=== PATIENT | female | born 1965 | race Caucasian/White ===

== ENCOUNTER 2016-10-05 08:13 | Inpatient (IN) | payer MEDICARE, OTHER ==
--- NOTE | ~2016-10-05 | DS ---
Discharge Summary [facility] [address] [place]. [address] NAME: SONIA GARBER : 67 STATUS : DIS IN PAT#: [id number] AGE: 51 ADM/REG DATE : 10/05/16 MR#: [id number] REPORT SERV DATE: 10/18/16 DICTATED BY: SHREYAS ESTRADA DATE: 10/17/16 REPORT STATUS : Draft TRANSCRIBED BY: JOSEPH DATE: 10/17/16 Data Collection from hospitalization DISCHARGE DIAGNOSES: 1. Coronary artery disease, status post coronary artery bypass grafting x4. 2. Acute on chronic pain. 3. Hypertension. 4. Generalized anxiety. 5. Hypokalemia. 6. Tobacco abuse. 7. Peptic ulcer disease. 8. Depression. 9. Hyperlipidemia. CONSULTATIONS: Nilay Davidson M.D. PROCEDURES PERFORMED: 1. Cardiac catheterization, 10/05/2016. 2. Coronary artery bypass x4 using left internal mammary artery and right greater saphenous vein harvested endoscopically. 3. Transesophageal echocardiogram, 10/06/2016. 4. CT scan of the chest without contrast, 10/05/2016. 5. Carotid blood flow study, 10/05/2016. 6. Vein mapping of the bilateral lower extremities, 10/05/2016. DISCHARGE MEDICATIONS: Xanax 0.5 mg every 12 hours as needed, aspirin 81 mg daily, Lipitor 40 mg at bedtime, Coreg 6.25 mg twice a day, Bentyl 20 mg four times a day, Yamila 10 mg every 12 hours, Nitrostat 0.4 mg sublingually as needed, Roxicodone one to two tablets every six hours as needed, Protonix 40 mg twice a day, Klor-Con 20 mEq daily, Deltasone 5 mg daily, Phenergan 25 mg per rectum twice a day, Zantac 300 mg at bedtime, Carafate 1 g before meals and at bedtime, Chantix 0.5 mg daily. She was instructed not to continue Imdur. CONDITION AT DISCHARGE: Stable. DISPOSITION: The patient was discharged home on a low-cholesterol, low-sodium, 1800-calorie cardiac/diabetic diet with no concentrated carbohydrates and activities as instructed. She will follow up with Dr. Ayesha White on 11/14/2016. She will follow up with me on 10/31/[address] Didi Schneider on 10/20/2016. She will follow up at [facility] 10/26/2016. HOSPITAL COURSE: This is a 51-year-old female who has a history of coronary artery disease with prior stenting in 2002 at which point she received 3 stents to the RCA. She was found to have distal circumflex disease at that time which was stented a few weeks later. She had another myocardial infarction in 2013. At that time, her circumflex looked good. However, the distal RCA was totally occluded and there was an 80% end-stent restenosis in the proximal RCA. Further intervention was performed on the RCA. At her last appointment, she had been doing well. We gave her prescription for nicotine patches, however, these were not covered by her insurance and she did not obtain them. She developed symptoms similar to Discharge Summary [address] [place]. [address] NAME: SONIA GARBER : 67 STATUS : DIS IN PAT#: [id number] AGE: 51 ADM/REG DATE : 10/05/16 MR#: [id number] REPORT SERV DATE: 10/18/16 DICTATED BY: SHREYAS ESTRADA DATE: 10/17/16 REPORT STATUS : Draft TRANSCRIBED BY: JOSEPH DATE: 10/17/16 prior to her previous heart attack. In general, she had bilateral arm heaviness that caused some hand numbness and poor civil engineering manager strength. Her symptoms were worse in the right arm than in the left arm. She also had burning in her chest that would generally start in the upper abdomen and radiates throughout her chest area. Her symptoms had been causing her anxiety. It was felt that she would need to undergo a cardiac catheterization. She was admitted to the hospital at this time for further evaluation and treatment. Upon admission, she was taken to the cardiac stucco laborer by Dr. Norman where she underwent the above-mentioned procedure. She tolerated this well. There were no complications. She was found to have severe multivessel coronary artery disease including 70% stenosis to the first diagonal, 75% stenosis to the first obtuse marginal, 95% second obtuse marginal, 60% mid circumflex, 60% second diagonal, and 55% mid LAD. There was also a 90% distal RCA in-stent stenosis which would make this her third time sent she had in-stent stenosis since her heart attack in 2002. In 2013, her ejection fraction was 53%. It was felt that she would need to undergo coronary artery bypass grafting. A CT scan of the chest without contrast was performed as well as a carotid blood flow study. Vein mapping of the bilateral lower extremities was also performed. The following day, she was taken to the operating room where she underwent the above-mentioned procedure. She tolerated this well. There were no complications. On postop day #1, she did have some pain control issues. She also had some anxiety. She had mild shortness of breath. We encouraged her to use pulmonary toilet. Chantix was continued. On 10/08/2016, she did complain of some incisional pain. Her chest x-ray showed mild edema. Lopressor was continued. She still had some anxiety. Nicotine replacement therapy continued. The following day, her blood pressure was labile. She was receiving a lot of pain and anxiety medication. We encouraged her to mobilize. Discharge planning was performed. On 10/10/2016, discharge instructions were given. Due to her improved and stable condition, she was discharged home with the above-stated instructions. Information collected by: Leatha Hutchinson I submit the above information as my discharge summary. TG/MODL Shreyas Estrada MD / [id number] CC: MD Didi Aburto
--- NOTE | ~2016-10-05 | CN ---
Consultation Report [facility] [address] [place]. [address] NAME: MEETA GARBER : 67 STATUS : ADM IN PAT#: [id number] AGE: 51 ADM/REG DATE : 10/05/16 MR#: [id number] REPORT SERV DATE: 10/05/16 DICTATED BY: ORLIN MILES DATE: 10/05/16 REPORT STATUS : Draft TRANSCRIBED BY: MODL DATE: 10/05/16 CONSULT NOTE DATE OF CONSULTATION: 10/05/2016 [facility] REASON FOR CONSULTATION: Multivessel-coronary artery disease. HISTORY OF PRESENT ILLNESS: This is a 51-year-old, female who has a longstanding history of coronary artery disease. She had her first LA in 2002 and received three stents to her distal RCA. She continued to smoke and had another LA in 2013, which showed total occlusion of her distal RCA with in-stent stenosis and received another stent at that time. She has continued to smoke and has been asymptomatic until last week, when she presented to the [facility] with complaints of chest pain and bilateral upper extremity weakness and numbness. She has thought her symptoms were similar to what she experienced in 2002 and 2013. She was brought in for a cardiac catheterization today and found to have severe multivessel-coronary artery disease including a 70% stenosis to her 1st diagonal, 75% stenosis to her 1st obtuse marginal, 95% 2nd obtuse marginal, 60% mid circumflex, 60% 2nd diagonal, and a 55% mid LAD. There was also a 90% distal RCA in-stent stenosis which would make this her third time since she has had in-stent stenosis since her heart attack in 2002. There was no mention of ejection fraction with no valvular abnormality. Ejection fraction in 2014 was around 53%. Currently, the patient is recovering after cardiac catheterization. She is tearful and anxious, but has no complaints of chest pain or shortness of breath. PAST MEDICAL HISTORY: Coronary artery disease with previous MIs; ongoing tobacco abuse; hypertension; hyperlipidemia; peptic ulcer disease; depression; chronic back pain, on pain management. SURGICAL HISTORY: PCI x2 for restenosis of her RCA stent. She has had two back surgeries. FAMILY HISTORY: She has a father who is with a history of hypertension, hyperlipidemia, and lung cancer. Mother who has suffered a sudden with a history of LA and high blood pressure. SOCIAL HISTORY: She is single, but has a significant other. She has an 11-year-old son. She smokes 10-19 cigarettes a day. Denies any alcohol abuse or illegal use of illicit drugs. She is on pain management with extended release OxyContin and morphine. ALLERGIES: NO KNOWN DRUG ALLERGIES. MEDICATIONS: Aspirin 81 mg per day, Atorvastatin 80 mg per day, carvedilol 6.25 mg per day, Chantix 0.5 mg per day, dicyclomine 20 mg per day, Imdur 30 mg extended release p.o. daily, morphine extended release 10 mg every 12 hours, nitroglycerin tabs as needed, omeprazole 40 Consultation Report [address] [place]. [address] NAME: MEETA GARBER : 67 STATUS : ADM IN PAT#: [id number] AGE: 51 ADM/REG DATE : 10/05/16 MR#: [id number] REPORT SERV DATE: 10/05/16 DICTATED BY: ORLIN MILES DATE: 10/05/16 REPORT STATUS : Draft TRANSCRIBED BY: MODJudie DATE: 10/05/16 mg per day, Protonix 40 mg per day, Phenergan 25 mg rectal suppository two times per day, ranitidine 300 mg p.o. daily and Carafate 1 g p.o. twice a day. Of note, she has not started the Chantix. She just received insurance approval for this. REVIEW OF SYSTEMS: A 12-point review of systems was obtained and is negative other than the HPI. LAB DATA: White blood cell count 9.1, hemoglobin of 12.3, hematocrit 38.3, and platelets 259. Sodium 142, potassium 3.5, chloride 105, bicarbonate 28, BUN 9, creatinine 0.3, glucose 91. PHYSICAL EXAMINATION: VITAL SIGNS: From today, temperature 98.2, heart rate 79, blood pressure 130/66, respiratory rate 20, and O2 saturation 94%. GENERAL: A pleasant, thin, female, anxious and tearful, but in no acute distress. NEURO: Alert and oriented x3. Pupils exhibit PERRLA. HEENT: Head normocephalic and atraumatic. Sclerae clear. NECK: Supple. LUNGS: Clear to auscultation bilaterally with normal effort. CARDIAC: S1, S2, with no murmurs, rubs, or gallops. ABDOMEN: Soft, flat, nontender with active bowel sounds. EXTREMITIES: Free of cyanosis, clubbing, or edema. ASSESSMENT AND PLAN: This is a 51-year-old, female who has a longstanding history of coronary artery disease with her first heart attack in 2002. She received three stents at that time, but had another heart attack in 2013, with re-in-stent stenosis to her RCA. She received another stent at that time and has recently begun experiencing chest pain. Taken for cardiac catheterization today and found to have her third episode of restenoses to her distal RCA, as well as other multiple coronary artery lesions as mentioned above. She needs multivessel-coronary artery bypass grafting. I discussed the risks and benefits of bypass surgery with the patient and her significant other. Also, I discussed STS risk scores. STS risk stratification for her in this particular surgery includes an overall mortality of 0.6%, morbidity mortality of 8%. I have discussed how these findings are related to her expectations for surgery and postop recovery. We discussed pain management as well. I will review the images with Dr. Phillips this afternoon to see if the patient is a candidate for surgery as it was mentioned that she might not have decent targets. I do believe that we would be able to help her in some degree. The other option is to put a third stent to the stenosis in the RCA, which is most likely the culprit lesion, but the concern is that she would be back at some point in time in the near future with restenosis of this and possibly another heart attack. We will await the conversation for Dr. Phillips who will come back and talk to the patient and her significant other prior to proceeding with surgery. Surgery could take place tomorrow morning, so I will go ahead and get a carotid ultrasound, noncontrast CT scan of the chest, and bilateral lower extremity venous mapping. Consultation Report [facility] [id number] [place]. [address] NAME: MEETA GARBER : 67 STATUS : ADM IN PAT#: [id number] AGE: 51 ADM/REG DATE : 10/05/16 MR#: [id number] REPORT SERV DATE: 10/05/16 DICTATED BY: ORLIN MILES DATE: 10/05/16 REPORT STATUS : Draft TRANSCRIBED BY: JOSEPH DATE: 10/05/16 We would like to thank you for this consultation. We look forward to helping you take care of Ms. Meeta Garber. FAROOQ/JOSEPH Orlin Miles NP / [id number] CC: Barrett Norman Jr., Erin
--- NOTE | ~2016-10-05 | OP ---
Record Of Operation [facility] [place]. [address] NAME: SONIA GARBER : 67 STATUS : DIS IN PAT#: [id number] AGE: 51 ADM/REG DATE : 10/05/16 MR#: [id number] REPORT SERV DATE: 11/06/16 DICTATED BY: SHREYAS ESTRADA DATE: 11/06/16 REPORT STATUS : Draft TRANSCRIBED BY: MODL DATE: 11/06/16 DATE OF PROCEDURE: 10/06/2016 ATTENDING SURGEON: Shreyas Estrada MD. CHART PICKER: STORMY Calderón. ANESTHESIOLOGIST: Fabian Dias MD PREOPERATIVE DIAGNOSES: 1. Hgd-IR-ralaiqe elevation myocardial infarction. 2. Unstable angina. 3. Three-vessel coronary artery disease. 4. Hypertension. 5. Hyperlipidemia. 6. Tobacco abuse. 7. Multiple previous coronary artery stents. POSTOPERATIVE DIAGNOSES: 1. Ajn-RD-pxumyme elevation myocardial infarction. 2. Unstable angina. 3. Three-vessel coronary artery disease. 4. Hypertension. 5. Hyperlipidemia. 6. Tobacco abuse. 7. Multiple previous coronary artery stents. OPERATION PROCEDURE PERFORMED: 1. Median sternotomy. 2. Extracorporeal circulation. 3. Urgent coronary artery bypass grafting x4, left internal mammary artery, left anterior descending, reverse greater saphenous vein graft to obtuse marginal #1, reverse greater saphenous vein graft to obtuse marginal #3. Reverse greater saphenous vein graft to posterior descending artery. 4. Transesophageal echocardiogram. 5. Endoscopic vein harvest to the right leg. COMPLICATIONS: None. TUBES AND DRAINS: 24-Palauan Leon to the left pleural space; 32-Palauan straight mediastinal chest tube; atrioventricular pacing wires were placed. POSTOPERATIVE CONDITION: To CVICU on no inotropic agents. INTRAOPERATIVE FINDINGS: Transesophageal echo showed trace MR, hyperdynamic ventricle with EF of 60% to 70%. There was preserved wall motion post bypass intraoperative findings. Record Of Operation [facility] [place]. [address] NAME: SONIA GARBER : 67 STATUS : DIS IN PAT#: [id number] AGE: 51 ADM/REG DATE : 10/05/16 MR#: [id number] REPORT SERV DATE: 11/06/16 DICTATED BY: SHREYAS ESTRADA DATE: 11/06/16 REPORT STATUS : Draft TRANSCRIBED BY: MODL DATE: 11/06/16 Obtuse marginal #3 and PDA are very small arteries. All targets were diffusely diseased. DETAILS OF BYPASS GRAFTIN. Grafts #1. Left internal mammary artery, left anterior descending, 1.75 mm. 2. Reverse greater saphenous vein graft to the obtuse marginal #1. This was 2 mm target. 3. Reverse greater saphenous vein graft to obtuse marginal #3. This was 1.5 mm target. 4. Reverse greater saphenous vein graft to posterior descending artery. This was 1.5 mm target. INDICATIONS FOR PROCEDURE: Ms. Graber is a 51-year-old female with a long history of tobacco abuse and multiple previous stents, who presented with chest pain with an NSTEMI, unstable angina, and was found to have significant three-vessel disease. Risks, benefits, and alternatives were discussed with the patient including but not limited to, bleeding, infection, stroke, , heart attack, and need for future operations. All questions were answered. Risks of renal failure and pulmonary failure were also discussed. STS mortality was discussed with the patient with an overall mortality risk 0.6% and morbidity mortality percent of 8%. All questions were answered. DETAILS OF PROCEDURE: The patient was brought to the operating room, placed supine on the operating room table. After satisfactory induction of general endotracheal anesthesia, she was prepped and draped in the usual sterile fashion. Working simultaneously, median sternotomy was performed while endoscopic vein harvest was performed from the right leg. Skin and subcutaneous tissues were divided. Clavipectoral fascia was divided. The sternum was divided in the midline. Rultract retractor was placed. Internal mammary artery was harvested in a pedicle fashion from its takeoff from the subclavian vein to the bifurcation of the diaphragm. Systemic heparinization was achieved. The pedicle was infiltrated with papaverine. After three minutes, the pedicle was clipped and divided at the bifurcation of the diaphragm. A 24-Palauan Leon was placed in the left pleural space and. Rultract retractor was removed. Sternal retractor was placed. Thymic tissue was divided in the midline. Pericardium was divided was opened and a pericardial well was created. Descending aortic cannulation was achieved at the base of the innominate artery through dual pursestrings with soft flow cannula. Dual-stage venous cannula was placed through pursestring in the right atrial appendage. Antegrade root vent cardioplegia tack was placed. The conduit was inspected and prepared for bypass. The internal mammary artery was brought down through a wide V in the pericardium. The cardiopulmonary bypass was initiated after documentation of an adequate ACT. The targets were inspected and were found to be as described in the findings. The cross-clamp was brought up, and the heart was arrested with cold antegrade cardioplegia switching to cold antegrade cardioplegia every 15 to 20 minutes throughout the remainder of the cross clamp. The grafts were then performed as mentioned in the findings. All distal anastomoses were performed with 8-0 Surgipro. The proximal vein grafts were performed after enlarging the heart, filling the veins, cutting the vein length spatulating. A proximal aortotomies were performed and enlarged with a 4.5 mm punch. Anastomoses were done with 6-0 Prolene and vein marker was placed. The internal mammary artery had been brought down through a wide V in the pericardium with anastomosed to the LAD. Bulldog was removed. There was excellent flow in the LAD distal and proximally to the anastomosis and to the graft. Pedicle was attached to the heart in two places. Atrial and ventricular pacing wires were placed. The grafts were de-aired and the cross-clamp was Record Of Operation [address] [place]. [address] NAME: SONIA GARBER : 67 STATUS : DIS IN PAT#: [id number] AGE: 51 ADM/REG DATE : 10/05/16 MR#: [id number] REPORT SERV DATE: 11/06/16 DICTATED BY: SHREYAS ESTRADA DATE: 11/06/16 REPORT STATUS : Draft TRANSCRIBED BY: MODL DATE: 11/06/16 removed. The patient was able to be weaned from cardiopulmonary bypass without incident. Protamine was administered. The patient was decannulated. All cannulation sites were oversewn with 4-0 Prolene. Hemostasis was obtained. A 32-Palauan chest tube was placed beneath the sternum. The pericardium and thymic tissue were loosely reapproximated over the ascending aorta and the right ventricle. The sternum was then reapproximated with stainless steel sternal wires. Some of these were double wires. The clavipectoral fascia was reapproximated using running #1 StrataFix. Subcutaneous tissues were closed using continuation of StrataFix, and the skin using 2-0 Quill. Dry sterile dressings were placed. She was transferred to the CVICU in critical stable condition. RONNIE/JOSEPH Shreyas Estrada MD / [id number] CC: MD HERMINIA Aburto ERIN
[~2016-10-05 08:13] MED LIST: ASAB PO; BENTYL20 PO; CHANTIX0.5 PO; COREG6 PO; IMDUR30 PO; KADIAN10 MG PO; LIPITOR80 MG PO; NITROSTAT0.4 MG SL; OXYIR5 MG PO; PR25R PR; PRILOSEC40 MG PO; PROTONIX PO; SUCR PO; ZANTAC300 MG PO
[2016-10-05 08:56] LABS: BASOPHILS 0.2 %; BASOPHILS ABSOLUTE 0.02 10/3/uL (0.0-0.16); EOSINOPHILS 0.9 %; EOSINOPHILS ABSOLUTE 0.08 10/3/uL (0.0-0.53); HEMOGLOBIN 12.3 g/dL (12.0-16.0); IMMATURE GRANULOCYTES 0.2 %; IMMATURE GRANULOCYTES ABSOLUTE 0.02 10/3/uL (0.0-0.11); LYMPHOCYTES ABSOLUTE 1.27 10/3/uL (0.67-4.30); MEAN CORPUS HGB CONC 32.1 g/dL (32.0-36.0); MEAN CORPUSCULAR HEMOGLOB 30.1 pg (26.0-34.0); MEAN CORPUSCULAR VOLUME 93.6 fL (80-100); MEAN PLATELET VOLUME 9.5 fL (9.2-13.0); MONOCYTES 9.3 %; MONOCYTES ABSOLUTE 0.84 10/3/uL (0.21-1.20); NEUTROPHILS 75.4 %; NEUTROPHILS ABSOLUTE 6.85 10/3/uL (2.02-8.40); PLATELET COUNT 259 10/3/uL (150-400); RBC DISTRIBUTION WIDTH 15.2 % (12.0-16.0); RED CELL COUNT 4.09 10/6/uL (4.0-5.6); WHITE BLOOD CELLS 9.1 10/3/uL (4.5-10.5)
[2016-10-05 08:58] LABS: HEMATOCRIT 38.3 % (36.0-48.0); MANUAL DIFF NO %
[2016-10-05 09:09] LABS: CALCIUM, SERUM 8.6 MG/DL (8.5-10.4); CHLORIDE, SERUM 105 MMOL/L (96-112); CHOL/HDL RATIO(NOT ORDER) 2.9 (0-5); CHOLESTEROL 163 MG/DL (< 200); CO2 (CARBON DIOXIDE) 28 MMOL/L (24-34); CREATININE 0.32 MG/DL (0.55-1.02); GFR AFRICAN AMERICAN 151 ML/MIN (>=60); GFR NON AFRICAN AMERICAN 131 ML/MIN (>=60); GLUCOSE, SERUM 91 MG/DL (60-99); HDL CHOLESTEROL 56 MG/DL (> 49); LDL CHOLESTEROL 83 MG/DL (< 130); NON-HDL CHOLESTEROL 107 MG/DL (< 160); SODIUM, SERUM 142 MMOL/L (135-148); TRIGLYCERIDE 122 MG/DL (< 150)
[2016-10-05 09:11] LABS: BUN (BLOOD UREA NITROGEN) 9 MG/DL (6-23); POTASSIUM, SERUM 3.5 MMOL/L (3.5-5.3)
[2016-10-05 17:24] LABS: WBC (NOT ORDERED) (RFLEX) 0 (0-5)
[2016-10-05 17:46] LABS: ASCORBIC ACID (UR NOT ORDER) NEG (NEG); BILIRUBIN, URINE NEGATIVE (NEG); KETONE, URINE NEGATIVE (NEG); LEUKOCYTE ESTERASE(NOT OR NEG (NEG)
[2016-10-06 04:09] LABS: BASOPHILS 0.2 %; BASOPHILS ABSOLUTE 0.01 10/3/uL (0.0-0.16); EOSINOPHILS 1.8 %; EOSINOPHILS ABSOLUTE 0.09 10/3/uL (0.0-0.53); HEMATOCRIT 35.7 % (36.0-48.0); HEMOGLOBIN 11.4 g/dL (12.0-16.0); LYMPHOCYTES 39.6 %; LYMPHOCYTES ABSOLUTE 1.96 10/3/uL (0.67-4.30); MEAN CORPUS HGB CONC 31.9 g/dL (32.0-36.0); MEAN CORPUSCULAR HEMOGLOB 29.2 pg (26.0-34.0); MEAN CORPUSCULAR VOLUME 91.3 fL (80-100); MEAN PLATELET VOLUME 9.1 fL (9.2-13.0); MONOCYTES 13.9 %; MONOCYTES ABSOLUTE 0.69 10/3/uL (0.21-1.20); NEUTROPHILS 44.5 %; PLATELET COUNT 224 10/3/uL (150-400); RBC DISTRIBUTION WIDTH 15.2 % (12.0-16.0); RED CELL COUNT 3.91 10/6/uL (4.0-5.6)
[2016-10-06 04:10] LABS: MANUAL DIFF NO %
[2016-10-06 04:14] LABS: PROTIME (NOT ORD) 13.1 SEC (12.0-14.5)
[2016-10-06 04:24] LABS: % IRON SAT 10 % (20-50); A/G RATIO 1.1 (0.7-1.9); ALKALINE PHOSPHATASE 66 U/L (45-117); BUN (BLOOD UREA NITROGEN) 8 MG/DL (6-23); CHLORIDE, SERUM 110 MMOL/L (96-112); CO2 (CARBON DIOXIDE) 27 MMOL/L (24-34); CREATININE 0.38 MG/DL (0.55-1.02); GFR AFRICAN AMERICAN 143 ML/MIN (>=60); GFR NON AFRICAN AMERICAN 124 ML/MIN (>=60); GLOBULIN 2.8 G/DL (2.5-4.1); GLUCOSE, SERUM 89 MG/DL (60-99); IRON BINDING CAPACITY 323 MCG/DL (225-410); IRON, SERUM 31 MCG/DL (35-150); POTASSIUM, SERUM 3.4 MMOL/L (3.5-5.3); SGOT(AST) 16 U/L (5-40); SGPT(ALT) 17 U/L (5-65); SODIUM, SERUM 148 MMOL/L (135-148); TOTAL BILIRUBIN 0.2 MG/DL (0-1.2); TOTAL PROTEIN 5.8 G/DL (6.0-8.5)
[2016-10-06 04:35] LABS: CALCIUM, SERUM 8.2 MG/DL (8.5-10.4)
[2016-10-06 13:00] LABS: HCO3 (ACTUAL BICARBONATE) 24.8 MEQ/L (23-27); HEMOBLOGIN CONTENT 10.8 G/DL (12-16); INSTRUMENT SERIAL # 11843; METHEMOGLOBIN 0.5 % (0-3); PCO2 (CO2 TENSION) 46 MMHG (35-45); PO2 (O2 TENSION) 89 MMHG (79-93); pH 7.35 (7.37-7.43)
[2016-10-06 13:01] LABS: MODE SIMV; O2 CONTENT 14.5 VOL% (18-24); OPERATOR ID 19104; SAMPLE Arterial; TIDAL VOLUME 550 ML
[2016-10-06 13:15] LABS: HEMATOCRIT 30.4 % (36.0-48.0); PLATELET COUNT 146 10/3/uL (150-400)
[2016-10-06 13:23] LABS: INTERNATIONAL NORMAL RATI 1.3 UNITS (-); PARTIAL THROMBO TIME 30.9 SEC (22.5-37.2)
[2016-10-06 13:25] LABS: PROTIME (NOT ORD) 16.3 SEC (12.0-14.5)
[2016-10-06 13:31] LABS: BUN (BLOOD UREA NITROGEN) 7 MG/DL (6-23); CALCIUM, SERUM 8.4 MG/DL (8.5-10.4); CHLORIDE, SERUM 115 MMOL/L (96-112); CO2 (CARBON DIOXIDE) 25 MMOL/L (24-34); CREATININE 0.59 MG/DL (0.55-1.02); GFR AFRICAN AMERICAN 124 ML/MIN (>=60); GFR NON AFRICAN AMERICAN 107 ML/MIN (>=60); POTASSIUM, SERUM 3.8 MMOL/L (3.5-5.3); SODIUM, SERUM 149 MMOL/L (135-148)
[2016-10-06 13:36] LABS: GLUCOSE, SERUM 109 MG/DL (60-99)
[2016-10-06 14:21] LABS: BE (BASE EXCESS) -3.3 MEQ/L (0 +/- 2.5); CARBOXYHEMOGLOBIN 0.3 % (0-3); HCO3 (ACTUAL BICARBONATE) 22.2 MEQ/L (23-27); HEMOBLOGIN CONTENT 11.6 G/DL (12-16); INSTRUMENT SERIAL # 11843; METHEMOGLOBIN 0.4 % (0-3); MODE SIMV; O2 CONTENT 16.1 VOL% (18-24); OPERATOR ID 18642; PCO2 (CO2 TENSION) 42 MMHG (35-45); PO2 (O2 TENSION) 139 MMHG (79-93); PRESSURE SUPPORT 0 cm.H2O; SAMPLE Arterial; TIDAL VOLUME 550 ML; pH 7.34 (7.37-7.43)
[2016-10-06 15:29] LABS: FIBRINOGEN 297 MG/DL (230-462)
[2016-10-06 18:07] LABS: HEMATOCRIT 31.2 % (36.0-48.0); HEMOGLOBIN 9.9 g/dL (12.0-16.0)
[2016-10-06 18:13] LABS: POTASSIUM, SERUM 3.6 MMOL/L (3.5-5.3)
[2016-10-06 18:27] LABS: BE (BASE EXCESS) 0.7 MEQ/L (0 +/- 2.5); CARBOXYHEMOGLOBIN 0.3 % (0-3); DEVICE NC; HEMOBLOGIN CONTENT 10.6 G/DL (12-16); INSTRUMENT SERIAL # 11843; METHEMOGLOBIN 0.7 % (0-3); O2 CONTENT 14.1 VOL% (18-24); OPERATOR ID 19104; PCO2 (CO2 TENSION) 44 MMHG (35-45); PO2 (O2 TENSION) 85 MMHG (79-93); SAMPLE Arterial; pH 7.39 (7.37-7.43)
[2016-10-06 22:54] LABS: HEMATOCRIT 29.2 % (36.0-48.0); HEMOGLOBIN 9.5 g/dL (12.0-16.0)
[2016-10-06 23:04] LABS: CALCIUM, SERUM 7.9 MG/DL (8.5-10.4); POTASSIUM, SERUM 4.1 MMOL/L (3.5-5.3)
[2016-10-07 03:40] LABS: BASOPHILS 0 %; EOSINOPHILS 0 %; HEMATOCRIT 27.9 % (36.0-48.0); HEMOGLOBIN 8.7 g/dL (12.0-16.0); IMMATURE GRANULOCYTES 0.3 %; IMMATURE GRANULOCYTES ABSOLUTE 0.04 10/3/uL (0.0-0.11); LYMPHOCYTES ABSOLUTE 1.05 10/3/uL (0.67-4.30); MEAN CORPUS HGB CONC 31.2 g/dL (32.0-36.0); MEAN CORPUSCULAR HEMOGLOB 28.8 pg (26.0-34.0); MEAN CORPUSCULAR VOLUME 92.4 fL (80-100); MEAN PLATELET VOLUME 10.3 fL (9.2-13.0); MONOCYTES 10.1 %; MONOCYTES ABSOLUTE 1.18 10/3/uL (0.21-1.20); NEUTROPHILS 80.6 %; NEUTROPHILS ABSOLUTE 9.44 10/3/uL (2.02-8.40); PLATELET COUNT 153 10/3/uL (150-400); RBC DISTRIBUTION WIDTH 15.2 % (12.0-16.0)
[2016-10-07 03:42] LABS: MANUAL DIFF NO %; RED CELL COUNT 3.02 10/6/uL (4.0-5.6); WHITE BLOOD CELLS 11.7 10/3/uL (4.5-10.5)
[2016-10-07 04:02] LABS: CALCIUM, SERUM 8.1 MG/DL (8.5-10.4); CHLORIDE, SERUM 111 MMOL/L (96-112); CO2 (CARBON DIOXIDE) 22 MMOL/L (24-34); CREATININE 0.32 MG/DL (0.55-1.02); GFR AFRICAN AMERICAN 151 ML/MIN (>=60); GFR NON AFRICAN AMERICAN 131 ML/MIN (>=60); POTASSIUM, SERUM 3.9 MMOL/L (3.5-5.3); SODIUM, SERUM 145 MMOL/L (135-148)
[2016-10-07 04:03] LABS: BUN (BLOOD UREA NITROGEN) 14 MG/DL (6-23); GLUCOSE, SERUM 91 MG/DL (60-99)
[2016-10-07 04:13] LABS: INTERNATIONAL NORMAL RATI 1.2 UNITS (-); PROTIME (NOT ORD) 15.2 SEC (12.0-14.5)
[2016-10-07 15:21] LABS: HEMATOCRIT 26.7 % (36.0-48.0); HEMOGLOBIN 8.7 g/dL (12.0-16.0)
[2016-10-07 15:31] LABS: POTASSIUM, SERUM 3.9 MMOL/L (3.5-5.3)
[2016-10-08 03:38] LABS: BASOPHILS 0.1 %; BASOPHILS ABSOLUTE 0.01 10/3/uL (0.0-0.16); EOSINOPHILS 0.1 %; EOSINOPHILS ABSOLUTE 0.01 10/3/uL (0.0-0.53); HEMATOCRIT 26.8 % (36.0-48.0); HEMOGLOBIN 8.6 g/dL (12.0-16.0); IMMATURE GRANULOCYTES 0.3 %; IMMATURE GRANULOCYTES ABSOLUTE 0.03 10/3/uL (0.0-0.11); LYMPHOCYTES 10.8 %; LYMPHOCYTES ABSOLUTE 1.18 10/3/uL (0.67-4.30); MEAN CORPUS HGB CONC 32.1 g/dL (32.0-36.0); MEAN CORPUSCULAR HEMOGLOB 29.9 pg (26.0-34.0); MEAN CORPUSCULAR VOLUME 93.1 fL (80-100); MEAN PLATELET VOLUME 9.7 fL (9.2-13.0); MONOCYTES 13.1 %; MONOCYTES ABSOLUTE 1.44 10/3/uL (0.21-1.20); NEUTROPHILS 75.6 %; PLATELET COUNT 137 10/3/uL (150-400); RBC DISTRIBUTION WIDTH 15.2 % (12.0-16.0); RED CELL COUNT 2.88 10/6/uL (4.0-5.6)
[2016-10-08 03:39] LABS: MANUAL DIFF NO %
[2016-10-08 03:49] LABS: BUN (BLOOD UREA NITROGEN) 11 MG/DL (6-23); CALCIUM, SERUM 8.2 MG/DL (8.5-10.4); CHLORIDE, SERUM 105 MMOL/L (96-112); CO2 (CARBON DIOXIDE) 23 MMOL/L (24-34); CREATININE 0.27 MG/DL (0.55-1.02); GFR AFRICAN AMERICAN 160 ML/MIN (>=60); GFR NON AFRICAN AMERICAN 138 ML/MIN (>=60); GLUCOSE, SERUM 94 MG/DL (60-99)
[2016-10-08 03:50] LABS: SODIUM, SERUM 137 MMOL/L (135-148)
[2016-10-09 05:26] LABS: BASOPHILS 0.1 %; BASOPHILS ABSOLUTE 0.01 10/3/uL (0.0-0.16); EOSINOPHILS 0.1 %; EOSINOPHILS ABSOLUTE 0.01 10/3/uL (0.0-0.53); HEMATOCRIT 25.6 % (36.0-48.0); HEMOGLOBIN 8.5 g/dL (12.0-16.0); IMMATURE GRANULOCYTES 0.1 %; IMMATURE GRANULOCYTES ABSOLUTE 0.01 10/3/uL (0.0-0.11); LYMPHOCYTES ABSOLUTE 1.46 10/3/uL (0.67-4.30); MEAN CORPUS HGB CONC 33.2 g/dL (32.0-36.0); MEAN CORPUSCULAR HEMOGLOB 30.4 pg (26.0-34.0); MEAN CORPUSCULAR VOLUME 91.4 fL (80-100); MEAN PLATELET VOLUME 10.8 fL (9.2-13.0); MONOCYTES 15.9 %; MONOCYTES ABSOLUTE 1.36 10/3/uL (0.21-1.20); NEUTROPHILS 66.8 %; NEUTROPHILS ABSOLUTE 5.72 10/3/uL (2.02-8.40); PLATELET COUNT 137 10/3/uL (150-400); RBC DISTRIBUTION WIDTH 14.9 % (12.0-16.0); WHITE BLOOD CELLS 8.6 10/3/uL (4.5-10.5)
[2016-10-09 05:29] LABS: MANUAL DIFF NO %
[2016-10-09 05:42] LABS: CALCIUM, SERUM 8.1 MG/DL (8.5-10.4); CHLORIDE, SERUM 104 MMOL/L (96-112); CREATININE 0.26 MG/DL (0.55-1.02); GFR AFRICAN AMERICAN 162 ML/MIN (>=60); GFR NON AFRICAN AMERICAN 140 ML/MIN (>=60); GLUCOSE, SERUM 103 MG/DL (60-99); POTASSIUM, SERUM 3.4 MMOL/L (3.5-5.3); SODIUM, SERUM 140 MMOL/L (135-148)
[2016-10-09 05:43] LABS: BUN (BLOOD UREA NITROGEN) 7 MG/DL (6-23); CO2 (CARBON DIOXIDE) 28 MMOL/L (24-34)
[2016-10-10 05:16] LABS: BASOPHILS 0.1 %; BASOPHILS ABSOLUTE 0.01 10/3/uL (0.0-0.16); EOSINOPHILS 0.5 %; EOSINOPHILS ABSOLUTE 0.04 10/3/uL (0.0-0.53); HEMATOCRIT 26.6 % (36.0-48.0); HEMOGLOBIN 8.6 g/dL (12.0-16.0); IMMATURE GRANULOCYTES 0.1 %; IMMATURE GRANULOCYTES ABSOLUTE 0.01 10/3/uL (0.0-0.11); LYMPHOCYTES 18.9 %; MANUAL DIFF NO %; MEAN CORPUS HGB CONC 32.3 g/dL (32.0-36.0); MEAN CORPUSCULAR HEMOGLOB 29.7 pg (26.0-34.0); MEAN CORPUSCULAR VOLUME 91.7 fL (80-100); MONOCYTES 15.4 %; MONOCYTES ABSOLUTE 1.22 10/3/uL (0.21-1.20); NEUTROPHILS ABSOLUTE 5.16 10/3/uL (2.02-8.40); PLATELET COUNT 157 10/3/uL (150-400); RBC DISTRIBUTION WIDTH 14.7 % (12.0-16.0); WHITE BLOOD CELLS 7.9 10/3/uL (4.5-10.5)
[2016-10-10 05:43] LABS: BUN (BLOOD UREA NITROGEN) 4 MG/DL (6-23); CALCIUM, SERUM 7.9 MG/DL (8.5-10.4); CHLORIDE, SERUM 106 MMOL/L (96-112); CO2 (CARBON DIOXIDE) 28 MMOL/L (24-34); CREATININE 0.27 MG/DL (0.55-1.02); GFR AFRICAN AMERICAN 160 ML/MIN (>=60); GFR NON AFRICAN AMERICAN 138 ML/MIN (>=60); GLUCOSE, SERUM 108 MG/DL (60-99); POTASSIUM, SERUM 3.3 MMOL/L (3.5-5.3); SODIUM, SERUM 143 MMOL/L (135-148)
[2016-10-10] MEDS ORDERED: LIPITOR40 PO (09:32)
[2016-10-10] MEDS ORDERED: HABIT21 TOP (09:34)
[2016-10-10] MEDS ORDERED: X5 PO (09:36)
[2016-10-10] MEDS ORDERED: KLOR-CON M2020 MEQ PO (09:37)
[2016-10-10] MEDS ORDERED: OXYCOD PO (09:38)
[2016-10-10] MEDS ORDERED: P5 PO (09:42)
== END 2016-10-10 11:44 | disposition home or self-care (01) | DRG 234 ==
LOC: CORLMH 08:13 → SSU1 08:20 → SDC/OF 10-06 06:04 → CVICU 10-06 11:14 → 5NO 10-08 16:57
PROVIDERS: Internal Medicine Cardiovascular Disease; Nurse Practitioner Family; Thoracic Surgery (Cardiothoracic Vascular Surgery)
PROC: 4A023N7 Measurement of Cardiac Sampling and Pressure, Left Heart, Percutaneous Approach (ICD-10-PCS; principal; 2016-10-05)
PROC: B2111ZZ Fluoroscopy of Multiple Coronary Arteries using Low Osmolar Contrast (ICD-10-PCS; 2016-10-05)
PROC: 021209W Bypass Coronary Artery, Three Arteries from Aorta with Autologous Venous Tissue, Open Approach (ICD-10-PCS; 2016-10-05)
PROC: B2151ZZ Fluoroscopy of Left Heart using Low Osmolar Contrast (ICD-10-PCS; 2016-10-05)
PROC: 02100Z9 Bypass Coronary Artery, One Artery from Left Internal Mammary, Open Approach (ICD-10-PCS; 2016-10-05)
PROC: 06BP4ZZ Excision of Right Saphenous Vein, Percutaneous Endoscopic Approach (ICD-10-PCS; 2016-10-06)
PROC: 5A1221Z Performance of Cardiac Output, Continuous (ICD-10-PCS; 2016-10-06)
PROC: B246ZZ4 Ultrasonography of Right and Left Heart, Transesophageal (ICD-10-PCS; 2016-10-06)
DX: I21.4 Non-ST elevation (NSTEMI) myocardial infarction (principal); I10 Essential (primary) hypertension; I25.10 Atherosclerotic heart disease of native coronary artery without angina pectoris; I25.2 Old myocardial infarction; Z95.5 Presence of coronary angioplasty implant and graft; F17.210 Nicotine dependence, cigarettes, uncomplicated; F32.9 Major depressive disorder, single episode, unspecified; Z79.82 Long term (current) use of aspirin; G89.29 Other chronic pain; F41.9 Anxiety disorder, unspecified; Z79.891 Long term (current) use of opiate analgesic
CPT/HCPCS: 36415; 71010; 71020; 71250; 80048; 80053; 80061; 81001; 82310; 82330; 82803; 82805; 82947; 82962; 83036; 83540; 83550; 83735; 84100; 84132; 84295; 84703; 85014; 85018; 85025; 85049; 85347; 85384; 85610; 85730; 86850; 86900; 86901; 86920; 87641; 93005; 93312; 93320; 93325; 93458; 93880; 94002; 94640; 94660; 94770; 99152; 99153; A9270-GY; C1713; C1757; C1769; C1776; C1887; C1894; G0365; G0463; J0690; J1170; J1644; J1885; J1940; J2150; J2250; J2370; J2405; J2440; J2720; J2930; J3010; J3370; J3475; J3480; P9045; P9047; Q9967